=== PATIENT | male | born 2000 | race Caucasian/White ===

== ENCOUNTER 2022-11-06 02:43 | Emergency (ER) | payer OTHER ==
[2022-11-06 02:59] VITALS: BP 140/95; PULSE 66; RESP 18; TEMP 97.6; BMI 23.0
[2022-11-06] MEDS ORDERED: KETOROLAC TROMETHAMINE 30 MG/1 ML VIAL IM ONE (04:14)
[2022-11-06] MEDS ORDERED: diazePAM 5 MG TABLET PO ONE (04:18)
[2022-11-06] MEDS ORDERED: LIDOCAINE 5% TOPICAL PATCH TP ONE (04:19)
[2022-11-06] MEDS ORDERED: LIDOCAINE 5% TOPICAL PATCH ONE (04:27)
[2022-11-06] MEDS ORDERED: diazePAM 5 MG TABLET ONE (04:27)
[2022-11-06] MEDS ORDERED: KETOROLAC TROMETHAMINE 30 MG/1 ML VIAL ONE (04:28)
[2022-11-06] MEDS ORDERED: LIDOCAINE PATCH REMOVAL MC SCH (22:00)
== END 2022-11-06 05:37 | disposition home or self-care (01) ==
LOC: EDBD 02:43 → JER 02:43
PROC: 3E0233Z Introduction of Anti-inflammatory into Muscle, Percutaneous Approach (ICD-10-PCS; principal; 2022-11-06)
DX: S46.911A Strain of unspecified muscle, fascia and tendon at shoulder and upper arm level, right arm, initial encounter (principal); X50.0XXA Overexertion from strenuous movement or load, initial encounter; Y93.H2 Activity, gardening and landscaping
CPT/HCPCS: 73030-TC-RT-FY; 99284-25